=== PATIENT | female | born 1985 | race Caucasian/White ===

== ENCOUNTER 2022-10-20 17:24 | Observation (INO) | payer OTHER ==
[~2022-10-20] VITALS: Ht 175.3 cm; Wt 161.0 kg
[2022-10-20] VITALS (22 sets, daily range): BP systolic 89–137; BP diastolic 49–81
[2022-10-20 18:24] LABS: BASO% 0.6 % (0-3); EOS% 1.8 % (0-8); HEMATOCRIT 38.1 % (37.0-47.0); HEMOGLOBIN 11.7 g/dl (12.0-16.0); IMMATURE GRANULOCYTES 0.2 % (0.0-5.0); LYMPH% 20.4 % (15-41); MEAN CELL VOLUME 80.9 fL CALC (80.0-100.0); MEAN CORPUSCULAR HGB 24.8 pG CALC (26.0-32.0); MEAN CORPUSCULAR HGB CONC 30.7 g/dL CAL (32.0-36.0); MONO% 4.3 % (2-13); NEUT# 7.04 thou/uL (2.00-7.15); NEUT% 72.7 % (42-76); RED BLOOD COUNT 4.71 mill/uL (4.20-5.60); RED CELL DISTRI WIDTH 15.1 % (11.5-15.5)
[2022-10-20 18:36] LABS: ALBUMIN 3.8 g/dL (3.2-5.0); ALKALINE PHOSPHATASE 90 u/l (38-126); ANION GAP 13 (6-22 (CALC)); BILIRUBIN, TOTAL 0.3 mg/dL (0.02-1.3); BUN 17 mg/dL (7-17); BUN/CREATININE RATIO 22 (12-20 (CALC)); CARBON DIOXIDE 21 mmol/l (22-30); CHLORIDE 109 mmol/l (95-108); CREATININE 0.8 mg/dL (0.5-1.0); GFR FOR AFR.AMER. > 60 ML/MIN (>=60 (CALC)); GFR OTHER RACES > 60 ML/MIN (>=60 (CALC)); LIPASE 119 u/l (23-300); SGOT/AST 20 u/l (14-36); SODIUM 139 mmol/l (137-146); TOTAL PROTEIN 6.9 g/dL (6.3-8.2)
[2022-10-20] MEDS ORDERED: ESTRADIOL1 MG PO (23:47)
[2022-10-20] MEDS ORDERED: LOPRESSOR25 M1 PO (23:49)
[2022-10-20] MEDS ORDERED: TRAZODONE100 MG PO (23:49)
[2022-10-20] MEDS ORDERED: LAMICTAL100 M1 PO (23:50)
[2022-10-20] MEDS ORDERED: BENZTROPINE0.5 MG PO (23:56)
[2022-10-20] MEDS ORDERED: HYDROXYZINE HCL50 MG PO (23:57)
[2022-10-20] MEDS ORDERED: ATORVASTATIN CA40 MG PO (23:57)
[2022-10-20] MEDS ORDERED: LEVOTHYROXIN50 MCG PO (23:58)
[2022-10-21] VITALS (8 sets, daily range): BP systolic 103–131; BP diastolic 52–66
[2022-10-21] MEDS ORDERED: HALDOL5 M1 PO
[2022-10-21] MEDS ORDERED: LAMICTAL100 M1 PO (00:06)
[2022-10-21] MEDS ORDERED: FLEXERIL5 M1 PO (00:08)
[2022-10-21] MEDS ORDERED: ASPIRINCHW 81MG PO (00:09)
[2022-10-21] MEDS ORDERED: XANAX1 MG PO (00:09)
[2022-10-21] MEDS ORDERED: TOPAMAX100 MG PO (00:15)
[2022-10-21] MEDS ORDERED: ZOLOFT100 MG PO (00:19)
[2022-10-21] MEDS ORDERED: ISOSORBIDE MONO30 MG PO (00:23)
[2022-10-21 02:28] LABS: BASO% 0.4 % (0-3); EOS% 2.2 % (0-8); HEMATOCRIT 37.4 % (37.0-47.0); HEMOGLOBIN 11.5 g/dl (12.0-16.0); IMMATURE GRANULOCYTES 0.1 % (0.0-5.0); LYMPH% 27.3 % (15-41); MEAN CORPUSCULAR HGB 24.9 pG CALC (26.0-32.0); MEAN CORPUSCULAR HGB CONC 30.7 g/dL CAL (32.0-36.0); MONO% 3.9 % (2-13); NEUT# 6.12 thou/uL (2.00-7.15); NEUT% 66.1 % (42-76); RED BLOOD COUNT 4.62 mill/uL (4.20-5.60); RED CELL DISTRI WIDTH 15.2 % (11.5-15.5)
[2022-10-21 04:20] LABS: ALBUMIN 3.5 g/dL (3.2-5.0); ALKALINE PHOSPHATASE 83 u/l (38-126); ANION GAP 11 (6-22 (CALC)); BILIRUBIN, TOTAL 0.3 mg/dL (0.02-1.3); BUN 15 mg/dL (7-17); BUN/CREATININE RATIO 19 (12-20 (CALC)); CARBON DIOXIDE 24 mmol/l (22-30); CHLORIDE 109 mmol/l (95-108); CREATININE 0.8 mg/dL (0.5-1.0); GFR FOR AFR.AMER. > 60 ML/MIN (>=60 (CALC)); GFR OTHER RACES > 60 ML/MIN (>=60 (CALC)); POTASSIUM 4.4 mmol/l (3.5-5.1); SGOT/AST 17 u/l (14-36); SODIUM 140 mmol/l (137-146); TOTAL PROTEIN 6.3 g/dL (6.3-8.2)
== END 2022-10-21 11:30 | disposition home or self-care (01) | DRG 313 ==
LOC: ED 17:24 → ICU 19:24
PROVIDERS: Family Medicine; ADMIT Internal Medicine; ATTEND Internal Medicine
DX: R07.9 Chest pain, unspecified (principal); I25.10 Atherosclerotic heart disease of native coronary artery without angina pectoris; I49.5 Sick sinus syndrome; E03.9 Hypothyroidism, unspecified; F32.A Depression, unspecified; F25.9 Schizoaffective disorder, unspecified; I25.2 Old myocardial infarction; Z95.0 Presence of cardiac pacemaker

== ENCOUNTER 2023-05-01 01:36 | Emergency (ER) | payer BC ==
[2023-05-01] VITALS (7 sets, daily range): BP systolic 117–131; BP diastolic 68–86
[~2023-05-01] VITALS: Ht 175.3 cm; Wt 166.0 kg
[~2023-05-01 01:36] MED LIST: ASPIRINCHW 81MG PO; ATORVASTATIN CA40 MG PO; BENZTROPINE0.5 MG PO; ESTRADIOL1 MG PO; FLEXERIL5 M1 PO; HALDOL5 M1 PO; HYDROXYZINE HCL50 MG PO; ISOSORBIDE MONO30 MG PO; LAMICTAL100 M1 PO; LEVOTHYROXIN50 MCG PO; LOPRESSOR25 M1 PO; TOPAMAX100 MG PO; TRAZODONE100 MG PO; XANAX1 MG PO; ZOLOFT100 MG PO
[2023-05-01 02:13] LABS: BASO% 0.5 % (0-3); EOS% 2.3 % (0-8); HEMATOCRIT 38.2 % (37.0-47.0); HEMOGLOBIN 12.3 g/dl (12.0-16.0); IMMATURE GRANULOCYTES 0.3 % (0.0-5.0); MEAN CELL VOLUME 82.9 fL CALC (80.0-100.0); MEAN CORPUSCULAR HGB 26.7 pG CALC (26.0-32.0); MEAN CORPUSCULAR HGB CONC 32.2 g/dL CAL (32.0-36.0); MONO% 4.2 % (2-13); NEUT# 7.75 thou/uL (2.00-7.15); NEUT% 70.7 % (42-76); RED BLOOD COUNT 4.61 mill/uL (4.20-5.60); RED CELL DISTRI WIDTH 14.6 % (11.5-15.5)
[2023-05-01 04:09] LABS: URINE BILIRUBIN - DIPSTICK Negative (NEGATIVE); URINE BLOOD DIPSTICK Negative (NEGATIVE); URINE GLUCOSE - DIPSTICK Negative (NEGATIVE); URINE KETONE Negative (NEGATIVE); URINE LEUK ESTERASE Negative (NEGATIVE); URINE NITRITE - DIPSTICK Negative (Negative); URINE PROTEIN - DIPSTICK Negative (NEG-TRACE); URINE SPECIFIC GRAVITY 1.025; URINE UROBILINOGEN - DIPSTICK 0.2 E.U./dL (0.2)
[2023-05-01 04:09] LABS: ALBUMIN 3.9 g/dL (3.2-5.0); ALKALINE PHOSPHATASE 90 u/l (38-126); BILIRUBIN, TOTAL 0.2 mg/dL (0.02-1.3); BUN 17 mg/dL (7-17); BUN/CREATININE RATIO 24 (12-20 (CALC)); CHLORIDE 112 mmol/l (95-108); CREATININE 0.7 mg/dL (0.5-1.0); GFR FOR AFR.AMER. > 60 ML/MIN (>=60 (CALC)); GFR OTHER RACES > 60 ML/MIN (>=60 (CALC)); POTASSIUM 4.1 mmol/l (3.5-5.1); SGOT/AST 21 u/l (14-36); SODIUM 138 mmol/l (137-146)
[2023-05-01 04:10] LABS: ANION GAP 11 (6-22 (CALC)); CARBON DIOXIDE 19 mmol/l (22-30)
[2023-05-01 04:13] LABS: URINE COLOR Yellow
[2023-05-01] MEDS ORDERED: TORADOL PO (05:07)
== END 2023-05-01 06:00 | disposition home or self-care (01) | DRG 313 ==
LOC: ED 01:36
PROVIDERS: Family Medicine
DX: R07.9 Chest pain, unspecified (principal); I25.10 Atherosclerotic heart disease of native coronary artery without angina pectoris; F32.A Depression, unspecified; E03.9 Hypothyroidism, unspecified; I49.5 Sick sinus syndrome; I25.2 Old myocardial infarction; Z95.0 Presence of cardiac pacemaker; Z72.0 Tobacco use